=== PATIENT | female | born 1990 | race Caucasian/White ===

== ENCOUNTER 2020-11-15 16:27 | Outpatient (CLI) | payer OTHER ==
[2020-11-15] VITALS (7 sets, daily range): BP systolic 114–136; BP diastolic 56–91
[~2020-11-15] VITALS: Ht 180.3 cm; Wt 94.2 kg
[2020-11-15] MEDS ORDERED: ACETAMINOPHEN *IV* 1,000 MG in IV 1 EA IV ONE (17:35)
[2020-11-15] MEDS ORDERED: LR 1,000 ML IV ONE (17:35)
[2020-11-15 18:42] LABS: HEMATOCRIT 38.3 % (36.0-47.0); HEMOGLOBIN 12.4 g/dl (12.0-15.5); MEAN CORPUSCULAR HEMOGLOBIN 28.2 pg (27.0-33.0); MEAN CORPUSCULAR HGB CONC 32.4 g/dl (32.0-36.5); PLATELET COUNT, AUTOMATED 182 10^3/uL (150-450); WHITE BLOOD COUNT 12.7 10^3/uL (4.0-10.0)
[2020-11-15 19:02] LABS: TOTAL PROTEIN,RANDOM URINE 22.8 MG/DL (0.0-12.0)
[2020-11-15 19:05] LABS: ALBUMIN 2.6 GM/DL (3.2-5.2); ALT/SGPT 20 U/L (12-78); BILIRUBIN,TOTAL 0.1 MG/DL (0.2-1.0); BLOOD UREA NITROGEN 12 MG/DL (7-18); CALCIUM LEVEL 8.8 MG/DL (8.5-10.1); CARBON DIOXIDE LEVEL 22 MEQ/L (21-32); CHLORIDE LEVEL 109 MEQ/L (98-107); CREATININE FOR GFR 0.56 MG/DL (0.55-1.30); GLOMERULAR FILTRATION RATE > 60.0 (>60); GLUCOSE, FASTING 100 MG/DL (70-100); LDH LACTATE DEHYDROGENASE 142 U/L (84-246); POTASSIUM SERUM 3.8 MEQ/L (3.5-5.1); SODIUM LEVEL 139 MEQ/L (136-145); TOTAL PROTEIN 5.7 GM/DL (6.4-8.2); URIC ACID 3.8 MG/DL (2.6-6.0)
[2020-11-15] MEDS ORDERED: PROMETHAZINE INJ 25 MG/ML VIAL (J2550) IV ONE (19:50)
== END 2020-11-15 20:24 | disposition home or self-care (01) ==
LOC: M LDO 16:27
PROVIDERS: ATTEND Obstetrics & Gynecology
DX: Z91.040 Latex allergy status (principal); Z88.2 Allergy status to sulfonamides; Z91.018 Allergy to other foods; Z91.030 Bee allergy status
CPT/HCPCS: 36415; 59025; 76815; 80053; 82570; 83615; 84156; 84550; 85027; 87798; 96374; 96375; G0378; G0463; J0131

== ENCOUNTER 2020-12-19 16:56 | Inpatient (IN) | payer OTHER ==
[2020-12-19] VITALS (35 sets, daily range): BP systolic 96–159; BP diastolic 50–88
[~2020-12-19] VITALS: Ht 182.9 cm; Wt 96.8 kg
[2020-12-19] MEDS ORDERED: LACTATED RINGER'S 1000 ML IV ONE (17:10)
[2020-12-19 17:38] LABS: HEMATOCRIT 39.4 % (36.0-47.0); HEMOGLOBIN 13.4 g/dl (12.0-15.5); MEAN CORPUSCULAR HEMOGLOBIN 28.6 pg (27.0-33.0); PLATELET COUNT, AUTOMATED 195 10^3/uL (150-450); RED BLOOD COUNT 4.69 10^6/uL (4.00-5.40); WHITE BLOOD COUNT 13.8 10^3/uL (4.0-10.0)
[2020-12-19] MEDS ORDERED: ACET500P3 PO (17:55)
[2020-12-19] MEDS ORDERED: PRENTAB9 PO (17:55)
[2020-12-19] MEDS ORDERED: FENTANYL 2MCG/ML ROPIVACAINE 0.2% IN 0.9% NACL 100ML IVBAG As Ordered ONE (18:24)
[2020-12-19] MEDS: LR 1,000 ML IV SCH (18:41)
--- NOTE | 2020-12-19 19:12 | HPEPDOC ---
Obstetrical History & Physical General Date of Admission Dec 19, 2020 at 17:21 Primary Care Physician: Rosendo Garcia MD History of Present Illness 30 yo AT 40.3 WEEKS HAD MEMBRANES STRIPPED CAME IN ACTIVE LABOR NO BLEEDING NO DISCHARGE EDC 12/16/20 Chief Complaint: Contractions, term Information Provided By: Patient Age: 30 : 4 Term: 1 Pre-term: 0 Abortions: 1 Livin Care Care: Good Care Number of Visits: 4 Dating Final EDC: Dec 16, 2020 Final EDC for Daily Update: Dec 16, 2020 Final EDC by: LMP LMP: Mar 11, 2020 Estimated Date of Confinement: Dec 16, 2020 EGA at Admission: 40.3 Antepartum Course Diagnos(e)s POST TERM ACTIVE LABOR Height (inches): 64 Pre- weight (lbs.): 170 Admission Weight (lbs.): 213 Change in Weight (lbs.): 43 Past Medical History Past Obstetrical History #1: Past Obstetrical History: Multigravida Date of Delivery: Dec 25, 2017 Type of Delivery: Spontaneous Vaginal Del. Complications: Yes (PPH RETAINED PLACENTA MANUAL REMOVAL) Past Obstetrical History #2: Past Obstetrical History: Multigravida Date of Delivery: Dec 19, 2020 Complications: No Past Obstetrical History #3: Past Obstetrical History: Primgravida Date of Delivery: Dec 19, 2020 SCUBA DIVER History: Spontaneous Past Medical History Medical History DEPRESSION ANXIETY MIGRAINES Surgical History: Other (TONSILS ) Family History Significant Family History: Other (MOTHER LUPUS, STROKE, FATHER NON HODGKINS LYMPHOMA ) Social History Social history NON SMOKER NO ETOH NO VAPING NO RECREATIONAL DRUGS Marital Status: Family situation: Spouse/partner home Psychosocial History: Depression * Smoker: non-smoker Alcohol: Denies Drugs: denies Abuse Violence Screening Have you been hit/kicked/slapp: No Have you been sexually assault: No Imunizations Tdap status: current Influenza Status: current Allergies Coded Allergies: Sulfa (Sulfonamide Antibiotics) (Verified Allergy, Severe, Anaphylaxis, 11/15/20) bee venom protein (honey bee) (Verified Allergy, Severe, Anaphylaxis , 11/15/20) Latex, Natural Rubber (Verified Allergy, Intermediate, Swelling , 11/15/20) [place] (Verified Allergy, Intermediate, Swelling, 11/15/20) nickel (Verified Allergy, Intermediate, Rash, 11/15/20) pecan nut (Verified Allergy, Intermediate, Swelling , 11/15/20) Medications Scheduled No.137/Iron/Folic Acd ( Vitamin Tablet) 1 Each Tablet, 1 TAB PO DAILY Miscellaneous Medications Acetaminophen (Tylenol Extra Strength) 500 Mg Powd.pack, 500 MG PO Physical Examination Physical Examination GENERAL: Alert and oriented times three. BREAST: . ABDOMEN: Gravid and non-tender to touch. FETUS: Is vertex (VTX) by sterile vaginal examination (SVE), fetus is vertex (VTX) by Juma. HEART RATE: Regular rate and rhythm. LUNGS: Clear to auscultation (CTA). EXTREMITIES: No edema. No clonus. Deep tendon reflexes (DTRs) + . Vital Signs/I&O Vital Signs Date Time Temp Pulse Resp B/P (MAP) Pulse Ox O2 Delivery O2 Flow Rate FiO2 12/19/20 18:37 89 119/70 (86) 12/19/20 18:29 18 12/19/20 17:07 98.2 Laboratory Data 24H LABS Laboratory Tests 2 12/19/20 17:18: Nucleated Red Blood Cells % (auto) 0.0 12/19/20 17:43: Serology Scanned Report Hepatitis B Testing CBC/BMP Laboratory Tests 12/19/20 17:18 Pertinent Laboratoy Data Blood Type: O+ RBC Antibody Screen: Negative HIV: Negative Hepatitis B: Negative Rapid Plasma Reagin: Nonreactive Rubella: Immune Varicella: Immune Chlamydia/Gonorrhea: Negative Group B Streptococcus: Negative Cystic Fibrosis: Negative Steroid Therapy Steroid Therapy: No Vaginal Examination Dilation: 5 cm Effacement: 60% Station: -2 Cervical Position: Posterior Presentation: Cephalic presentation Assessment Variability: Increased Accelerations: Positive Decelerations: None Tocometer Contractions: Yes Frequency: regular, every 1-3 min., greater than 9 min/apart, greater than 10 min/apart Duration: greater than 60 seconds Strength: palpated as moderate Assessment/Plan Assessment 30year-old (G)4parP 1 at + weeks by 40.3 week ultrasound. Presents to Labor and Delivery (L&D) . Plan Admit and orient. Acidizer [place] and consent. Diet: NPO Group B Streptococcus (GBS) [negative]. Labs and intravenous (IV) per unit protocol. Counseled on Pitocin and induction of labor (IOL). Lactated Ringers (LR): Bolus mL, then at mL/hr. Anticipate [normal spontaneous delivery ()]. C-S as appropriate. Rosendo Garcia MD Dec 19, 2020 19:12
[2020-12-19] MEDS ORDERED: OXYTOCIN INJ 10 UNITS/ML VIAL (J2590) IV ONE (19:15)
[2020-12-19] MEDS ORDERED: METHYLERGONOVINE MALEATE 0.2 MG/ML VIAL (J2210) IM ONE (19:15)
[2020-12-19] MEDS ORDERED: OXYTOCIN DRIP 30 UNITS in IV 1 EA IV ONE (19:15)
[2020-12-19] MEDS ORDERED: ONDANSETRON 4MG/2ML VIAL As Ordered ONE (20:24)
[2020-12-19] MEDS ORDERED: EPIDURAL COMMENT XX SCH (20:30)
[2020-12-19] MEDS ORDERED: REFRIGERATOR IV KEYS XX PRN (20:30)
[2020-12-19] MEDS ORDERED: diphenhydrAMINE 50MG/ML VIAL (J1200) IV PRN (20:30)
[2020-12-19] MEDS ORDERED: FENTANYL/ROPIVACAINE/NACL BAG 100 ML EPIDURAL SCH (20:30)
[2020-12-19] MEDS ORDERED: LACTATED RINGER'S 1000 ML IV PRN (20:30)
[2020-12-19] MEDS ORDERED: NALOXONE INJ 0.4MG/1ML VIAL (J2310 PER 1MG) IV PRN (20:30)
[2020-12-19] MEDS ORDERED: ONDANSETRON 4MG/2ML VIAL IV PRN (20:30)
[2020-12-19] MEDS ORDERED: ePHEDrine SULFATE 25 MG/5 ML(5MG/ML) SYRINGE IV PRN (20:30)
[2020-12-19] MEDS ORDERED: EPIDURAL/PCA KEYS XX PRN (20:30)
[2020-12-19] MEDS ORDERED: CALCIUM CARBONATE 500 MG CHEW U/D PO PRN (23:00)
[2020-12-20] VITALS (8 sets, daily range): BP systolic 118–155; BP diastolic 56–71
[2020-12-20 00:10] LABS: CORD GAS ABE A -2.2; CORD GAS ABE V -0.5; CORD GAS HCO3 A 26.2 MEQ/L; CORD GAS HCO3 V 25.5 MEQ/L; CORD GAS O2 SAT A 18.8 %; CORD GAS O2 SAT V 41.2 %; CORD GAS PCO2 A 60.1 mmHg; CORD GAS PCO2 V 46.9 mmHg; CORD GAS PH A 7.258 UNITS; CORD GAS PH V 7.354 UNITS; CORD GAS PO2 A 12.7 mmHg; CORD GAS PO2 V 19.2 mmHg; CORD GAS SBC A 20.6 MEQ/L; CORD GAS SBC V 22.5 MEQ/L; CORD GAS TCO2 A 28.1 MEQ/L
[2020-12-20] MEDS ORDERED: ANUSOL HC CREAM 30GM TOP PRN (00:25)
[2020-12-20] MEDS ORDERED: MEASLES,MUMPS,RUBELLA VACCINE INJ (MMR-II) (90707) SC SCH (00:25)
[2020-12-20] MEDS ORDERED: ACETAMINOPHEN 500 MG TAB PO PRN (00:25)
[2020-12-20] MEDS ORDERED: ACETAMINOPHEN TAB 650MG DOSE (2X325MG) PO PRN (00:25)
[2020-12-20] MEDS ORDERED: RHOGAM 300 MCG (1500 IU) INJ (J2790) IM SCH (00:25)
[2020-12-20] MEDS ORDERED: OXYTOCIN INJ 10 UNITS/ML VIAL (J2590) IV ONE (00:25)
[2020-12-20] MEDS ORDERED: DOCUSATE SODIUM 100MG CAPSULE PO PRN (00:25)
[2020-12-20] MEDS ORDERED: DIBUCAINE 1% OINTMENT 30GM TOP PRN (00:25)
[2020-12-20] MEDS ORDERED: MOM 30ML SUSPENSION UDC PO PRN (00:25)
[2020-12-20] MEDS ORDERED: METHYLERGONOVINE MALEATE 0.2 MG TAB PO PRN (00:25)
[2020-12-20] MEDS ORDERED: OXYTOCIN DRIP 30 UNITS in IV 1 EA IV ONE (00:25)
[2020-12-20] MEDS ORDERED: IBUPROFEN 600MG TAB PO PRN (00:25)
[2020-12-20] MEDS: LR 1,000 ML IV SCH (02:32)
[2020-12-20] MEDS: PRENATAL VITAMINS CHEWABLE TABLET PO SCH (08:17)
--- NOTE | 2020-12-20 11:06 | DN ---
DELIVERY NOTE DATE OF DELIVERY: 12/19/2020 TIME OF : GENDER: Female APGARS: 8 and 9 LACERATIONS: ANESTHESIA: ESTIMATED BLOOD LOSS: 200 cc. COUNTS: DESCRIPTION OF DELIVERY: This is a 30-year-old 4, now para 2, who was admitted with spontaneous contractions after membranes stripping at 40 and 3 weeks of gestation. With epidural in place, had a spontaneous vaginal delivery, intact perineum, a live female infant weighing 7 pounds 11 ounces (3490 grams). Apgars of 8 and 9 at 1 and 5 minutes respectively. Arterial pH 7.25, base excess -2.2; venous pH 7.35, base excess -0.5. Manual exploration after spontaneous delivery of a delayed placenta revealed an intact placenta as well as an intact uterus with no evidence of remanence or membranes. The uterus contracted well under Pitocin and she was given Cytotec 1,000 mg per rectum. The examination of the anterior, lateral and posterior engel was intact. Sphincter was intact. Uterus remained contracted well down under Pitocin. The patient and the baby tolerating the procedure well.
[2020-12-21 06:02] VITALS: BP 126/59
--- NOTE | 2020-12-21 06:39 | IPNPDOC ---
Progress Note Date of Service: Dec 21, 2020 Day#: 1 Progress Note SUBJECT: Mrs. Lala Licea is a 30yo now PPD#1 s/p an uncomplicated va ginal delivery productive of a female with APGARS 8/9 weighing 3490- grams. This morning, Mrs. Licea is doing well. She reports that her pain is well controlled; her lochia is diminishing; she is ambulating without difficulty; is voiding spontaneously; and is passing flatus. She is and considering Nexplanon for contraception. OBJECTIVE: VITAL SIGNS: Within normal limits, afebrile. GEN: Alert and oriented times three. PULM: Breath sounds clear to auscultation. CV: Heart rate: Regular rate and rhythm, no murmurs, rubs or gallops. Abdomen: Fundus firm at U-2. Soft, NTTP. ASSESSMENT: Mrs. Licea is a 30yo G4 now P2022 status post uncomplicated spontaneous vaginal delivery after presenting in active labor, delivered on 19 Dec 2020, who is doing well on day 1. Vitals within normal limits, afebrile, hemodynamically stable with no evidence of infection. PLAN: 1. Tylenol and Motrin for pain. 2. Encourage breast feeding and ambulation. 3. Nexplanon for contraception. 4. Routine PP visit in 6 weeks in clinic. 5. Discussed return precautions at length. VS, I&O, 24H, Fishbone Vital Signs/I&O Vital Signs Date Time Temp Pulse Resp B/P (MAP) Pulse Ox O2 Delivery O2 Flow Rate FiO2 12/21/20 06:02 98.7 88 18 126/59 (81) 98 12/20/20 17:50 Room Air I&O- Last 24 Hours up to 6 AM 12/21/20 05:59 Output Total 350 ml Balance -350 ml OSMAR COLLADO M.D. Dec 21, 2020 06:39
[2020-12-21 07:54] LABS: HEMATOCRIT 35.8 % (36.0-47.0); HEMOGLOBIN 11.8 g/dl (12.0-15.5); MEAN CORPUSCULAR HEMOGLOBIN 29.1 pg (27.0-33.0); MEAN CORPUSCULAR VOLUME 88.4 fl (80.0-96.0); PLATELET COUNT, AUTOMATED 169 10^3/uL (150-450); RED BLOOD COUNT 4.05 10^6/uL (4.00-5.40); WHITE BLOOD COUNT 10.3 10^3/uL (4.0-10.0)
[2020-12-21] MEDS: PRENATAL VITAMINS CHEWABLE TABLET PO SCH (08:35)
--- NOTE | 2020-12-21 13:27 | OBDS ---
[facility] Obstetrical Discharge Sum. Obstetrical Discharge Summary Date: Dec 21, 2020 Time: 13:15 : 4 Term: 2 Pre-term: 0 Abortions: 2 Livin VDRL: Non-Reactive Rh: Positive Rubella: Immune Labor Spontaneous labor at term Delivery at term Sex: Female Infant Weight: pounds (7), ounces (11) Anesthesia: Regional Anesthesia Episiotomy none A/P, Post Course List any complications Admission diagnosis: labor at term. Discharge diagnosis: day 2 pp Condition at Discharge: stable Discharge Instructions: Home Activity: ad shefali Diet: reg Medications: @ [place] Follow-up: 2 day , 2wk depression screening, 6wk pp with Nexplanon placement Other: reviewed appropriate f/u and reasons to return for care with expressed understanding SOLO FRANCOIS CNM Dec 21, 2020 13:26
== END 2020-12-21 15:04 | disposition home or self-care (01) | DRG 807 ==
LOC: M LDO 16:56 → M LDI 17:21 → M OBS 12-20 03:05
PROVIDERS: ADMIT Obstetrics & Gynecology; ATTEND Obstetrics & Gynecology
PROC: 10E0XZZ Delivery of Products of Conception, External Approach (ICD-10-PCS; principal; 2020-12-20)
DX: O48.0 Post-term pregnancy (principal); Z37.0 Single live birth; Z3A.40 40 weeks gestation of pregnancy